=== PATIENT | male | born 2000 | race Caucasian/White ===

== ENCOUNTER 2019-02-17 16:47 | Emergency (ER) | payer BC, OTHER ==
[~2019-02-17] VITALS: Ht 177.8 cm; Wt 95.3 kg
[2019-02-17 17:13] LABS: BILIRUBIN,URINE NEGATIVE (NEGATIVE); CLARITY,URINE CLEAR; COLOR,URINE YELLOW; GLUCOSE, URINE (UA) NEGATIVE (NEGATIVE); KETONES,URINE NEGATIVE (NEGATIVE); LEUKOCYTE ESTERASE ,URINE NEGATIVE (NEGATIVE); NITRITE,URINE NEGATIVE (NEGATIVE); PH,URINE 5 (5-9); PROTEIN,URINE NEGATIVE (NEGATIVE); UROBILINOGEN,URINE NORMAL (NORMAL)
[2019-02-17 17:19] LABS: BACTERIA,URINE NEGATIVE /HPF
[2019-02-17 17:27] LABS: AMPHETAMINE SCREEN, URINE POSITIVE (NEGATIVE); BARBITURATE SCREEN URINE NEGATIVE (NEGATIVE); BENZODIAZEPINES SCREEN URINE NEGATIVE (NEGATIVE); CANNABINOID SCREEN, URINE POSITIVE (NEGATIVE); COCAINE SCREEN URINE NEGATIVE (NEGATIVE); METHADONE STAT NEGATIVE (NEGATIVE); METHAMPHETAMINE SCREEN URINE S NEGATIVE (NEGATIVE); OPIATE SCREEN URINE NEGATIVE (NEGATIVE); OXYCODONE STAT NEGATIVE (NEGATIVE); PROPOXYPHENE STAT NEGATIVE (NEGATIVE); TRICYCLIC ANTIDEPRESSANTS SCRE NEGATIVE (NEGATIVE)
[2019-02-17] MEDS ORDERED: hydrOXYzine (VISTARIL) 25 MG capsule/tablet PO ONE (17:45)
--- NOTE | 2019-02-17 17:45 | ED Psychosocial ---
General Chief Complaint: Psych/Social Disorder Stated Complaint: PSYCH EVAL Nursing Triage Note: PT AMB TO [facility] 6 WITH REQUEST FOR PSYCH EVAL. PT STATES HE ATTEMPTED SUICIDE ON TUESDAY BY TAKING 8 HYDROCODONES. STATE SHE HAD BEEN DRINKING PRIOR TO TAKING PILLS. STATES ROOMMATE MADE HIM DRINK A BUNCH OF WATER UNTIL HE THREW THE PILLS UP. PT STATES THE [employer] IS REQUESTING HE HAVE A PSYCH EVAL. History of Present Illness Date Seen by Provider: Feb 17, 2019 Time Seen by Provider: 17:25 Initial Comments 18-year-old male presented for psychiatric evaluation. 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 He told a superior officer about events that happened earlier this week and they felt he required psychiatric eval. He reports on for 02/14/2019 he took 8 hydrocodone, he had from a previous surgery and made suicidal comments to friends. He denies planning to attempt suicide, he just became acutely stressed because his friends thought he was lying to them. At present time the patient denies suicidal or homicidal thoughts and he has no suicide plan, he does report anxiety related to his commitments and possible deployment this fall to [facility] for 9-10 months. He is second guessing his career but concerned about the financial debt, failing his parents plans for him, and difficulty continuing in college. 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 He also reports that it was the best option for his college tuition. He is concerned about mental health treatment and being able to stay in the . He reports significant anxiety that has been escalating over the last few weeks to month. He has never been on treatment for anxiety or any other behavioral health issues. No family history of mental health disorders. He has good communication with his parents and 5 siblings. Patient states that he feels stressed all the time, related to [employer], and anxious but not suicidal. Timing/Duration: getting worse Severity: moderate Associated Symptoms: anxiety, insomnia (with drill this ) Allergies and Home Medications Allergies Coded Allergies: No Known Drug Allergies (Unverified , 02/17/19) Home Medications Hydroxyzine Pamoate 50 Mg Capsule, 50 MG PO Q8H PRN for ANXIETY Prescribed by: DERRICK LIMON on 02/17/19 0394 Patient Home Medication List Home Medication List Reviewed: Yes Review of Systems Constitutional: no symptoms reported, see HPI Psychiatric/Neurological: See HPI, Anxiety All Other Systems Reviewed Negative Unless Noted: Yes Past Qifhbdj-Xvekmk-Ptyqmj Hx Past Med/Social Hx: Reviewed Nursing Past Med/Soc Hx Patient Social History Alcohol Use: Regular Use Alcohol Beverage of Choice: Beer (8-9: 3 times a week) Recreational Drug Use: Yes (denies using since enlisting but does report he smoked pot on 02/14/19) Drug of Choice: marijuana Smoking Status: Current Someday Smoker Recent Foreign Travel: No Contact w/Someone Who Travel: No Recent Infectious Disease Expo: No Immunizations Up To Date Tetanus Booster (TDap): Unknown PED Vaccines UTD: Yes Family Medical History Reviewed Nursing Family Hx No Pertinent Family Hx Physical Exam Vital Signs - First Documented 02/17/19 16:50 Pulse 112 Resp 16 B/P (MAP) 133/86 (102) Pulse Ox 98 O2 Delivery Room Air Capillary Refill : Less Than 3 Seconds Height, Weight, BMI Height: 5'10.00" Weight: 210lbs. oz. 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 technician II-XII nml as tested, no motor/sensory deficits, alert, normal mood/affect, oriented x 3 Appearance/Memory: appropriate appearance, appropriate insight, neat, no memory impairment, denies illness Behavior/Eye Contact: cooperative, good eye contact, normal speech Thoughts/Hallucinations: normal thought pattern, no apparent hallucination, auditory hallucinations Skin: normal color, warm/dry Lymphatic: no adenopathy Progress/Results/Core Measures Results/Orders Lab Results Laboratory Tests Test 02/17/19 17:03 02/17/19 17:40 Range/Units Urine Color YELLOW Urine Clarity CLEAR Urine pH 5 5-9 Urine Specific [place] 1.025 H 1.016-1.022 Urine Protein NEGATIVE NEGATIVE Urine Glucose (UA) NEGATIVE NEGATIVE Urine Ketones NEGATIVE NEGATIVE Urine Nitrite NEGATIVE NEGATIVE Urine Bilirubin NEGATIVE NEGATIVE Urine Urobilinogen NORMAL NORMAL MG/DL Urine Leukocyte Esterase NEGATIVE NEGATIVE Urine RBC (Auto) NEGATIVE NEGATIVE Urine RBC NONE /HPF Urine WBC NONE /HPF Urine Squamous Epithelial Cells NONE /HPF Urine Crystals NONE /LPF Urine Bacteria NEGATIVE /HPF Urine Casts NONE /LPF Urine Mucus NEGATIVE /LPF Urine Culture Indicated NO Urine Opiates Screen NEGATIVE NEGATIVE Urine Oxycodone Screen NEGATIVE NEGATIVE Urine Methadone Screen NEGATIVE NEGATIVE Urine Propoxyphene Screen NEGATIVE NEGATIVE Urine Barbiturates Screen NEGATIVE NEGATIVE Ur Tricyclic Antidepressants Screen NEGATIVE NEGATIVE Urine Phencyclidine Screen NEGATIVE NEGATIVE Urine Amphetamines Screen POSITIVE H NEGATIVE Urine Methamphetamines Screen NEGATIVE NEGATIVE Urine Benzodiazepines Screen NEGATIVE NEGATIVE Urine Cocaine Screen NEGATIVE NEGATIVE Urine Cannabinoids Screen POSITIVE H NEGATIVE White Blood Count 10.3 4.3-11.0 10^3/uL Red Blood Count 5.30 4.35-5.85 10^6/uL Hemoglobin 16.0 13.3-17.7 G/DL Hematocrit 47 40-54 % Mean Corpuscular Volume 88 80-99 FL Mean Corpuscular Hemoglobin 30 25-34 PG Mean Corpuscular Hemoglobin Concent 34 32-36 G/DL Red Cell Distribution Width 14.1 10.0-14.5 % Platelet Count 232 130-400 10^3/uL Mean Platelet Volume 10.6 H 7.4-10.4 FL Neutrophils (%) (Auto) 51 42-75 % Lymphocytes (%) (Auto) 39 12-44 % Monocytes (%) (Auto) 9 0-12 % Eosinophils (%) (Auto) 1 0-10 % Basophils (%) (Auto) 0 0-10 % Neutrophils # (Auto) 5.3 1.8-7.8 X 10^3 Lymphocytes # (Auto) 4.0 1.0-4.0 X 10^3 Monocytes # (Auto) 0.9 0.0-1.0 X 10^3 Eosinophils # (Auto) 0.1 0.0-0.3 10^3/uL Basophils # (Auto) 0.0 0.0-0.1 10^3/uL Sodium Level 138 135-145 MMOL/L Potassium Level 3.8 3.6-5.0 MMOL/L Chloride Level 102 98-107 MMOL/L Carbon Dioxide Level 23 21-32 MMOL/L Anion Gap 13 5-14 MMOL/L Blood Urea Nitrogen 9 7-18 MG/DL Creatinine 1.08 0.60-1.30 MG/DL Estimat Glomerular Filtration Rate > 60 BUN/Creatinine Ratio 8 Glucose Level 87 70-105 MG/DL Calcium Level 10.2 H 8.5-10.1 MG/DL Corrected Calcium 8.5-10.1 MG/DL Total Bilirubin 1.1 H 0.1-1.0 MG/DL Aspartate Amino Transf (AST/SGOT) 32 5-34 U/L Alanine Aminotransferase (ALT/SGPT) 27 0-55 U/L Alkaline Phosphatase 60 40-136 U/L Total Protein 7.8 6.4-8.2 GM/DL Albumin 5.0 H 3.2-4.5 GM/DL Amylase Level 52 25-125 U/L TSH [place] Testing 1.41 0.35-4.94 UIU/ML Salicylates Level < 5.0 L 5.0-20.0 MG/DL Acetaminophen Level < 10 L 10-30 UG/ML Serum Alcohol < 10 <10 MG/DL My Orders Orders - DERRICK LIMON Ua Culture If Indicated (02/17/19 17:08) Cbc With Automated Diff (02/17/19 17:08) Comprehensive Metabolic Panel (02/17/19 17:08) Alcohol (02/17/19 17:08) Drug Screen Stat (Urine) (02/17/19 17:08) Acetaminophen (02/17/19 17:08) Salicylate (02/17/19 17:08) Ed Iv/Invasive Line Start (02/17/19 17:08) Thyroid Analyzer (02/17/19 17:08) Amylase (02/17/19 17:08) Monitor-Rhythm Ecg Trace Only (02/17/19 17:08) Hydroxyzine Cap/Tab (Vistaril) (02/17/19 17:45) Ekg Tracing (02/17/19 17:43) Medications Given in ED Current Medications Medications Dose Ordered Sig/Tanmay Route Start Time Stop Time Status Last Admin Dose Admin Hydroxyzine Pamoate 50 mg ONCE ONCE PO 02/17/19 17:45 02/17/19 17:46 DC 02/17/19 17:45 50 MG Vital Signs/I&O 02/17/19 02/17/19 16:50 18:56 Pulse 112 101 Resp 16 22 B/P (MAP) 133/86 (102) 127/89 (102) Pulse Ox 98 98 O2 Delivery Room Air Room Air Blood Pressure Mean: 102 Progress Progress Note : Time: 17:25 Progress Note Patient seen and evaluated, discussed options for treatment and making long- term decisions about continuing in the . I stressed the importance of him getting long-term care for the anxiety before making any acute decisions. 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 He is open to trying Vistaril for the acute anxiety. He does not feel comfortable staying at drill this weekend. Spoke to Sgt Hand, who accompanied the patient. He can be released to the care of his parents for the remainder of the weekend, meet with his junior recruiter on Tuesday and discuss his options. 1830 HR 85-90, patient does still Vistaril has taken the edge off the anxiety. I have encouraged that he call [facility] on Tuesday for appt with medical and counseling. He can be treated mood disorder and remain in [employer]. He is in agreement with this plan. We talked to Sgt Hand, he can be released from [facility] for this weekend to the care of his family. He will be screened by [facility] behavioral health rn case manager hospice to insure a plan of care is in place for the patient. He is agreeable to this and will talk about his future with his family. Discharge planning and return precautions as well as a safety plan of his anxiety or suicidal thoughts per to return for in place. The patient did call his stepfather prior to discharge and the family is in agreement to obtain him from [facility]. Initial ECG Impression Date: Feb 17, 2019 Initial ECG Impression Time: 17:01 Initial ECG Rate: 113 Initial ECG Rhythm: S.Tach Initial ECG Intervals: Normal Initial ECG Intervals PA 136, QRSD 112, QT 316, QTC 434. Prather P 63, QRS 84, T 30. Initial ECG Impression: Normal Initial ECG Comparisson: No Previous ECG Available Comment Reviewed with Dr. Patel, agreed with interpretation. Departure Impression Primary Impression: Anxiety Disposition: 01 HOME, SELF-CARE Condition: Improved Departure-Patient Inst. Decision time for Depature: 18:35 Referrals: NO,LOCAL PHYSICIAN (PCP/Family) Primary Care Physician Patient Instructions: Anxiety, Adult (DC) Add. Discharge Instructions: Take prescribed medication as directed, do not take any other medication. Call [facility] on Tuesday [phone] for appt. Schedule an appointment to see your junior recruiter on Tuesday to discuss options. If feelings to harm self or others, call [phone] or [phone]. Stay with [employer] or your parents through the weekend. Return to emergency department if feelings to harm self or others, increased anxiety, new problems or concerns. All discharge instructions reviewed with patient and/or family. Voiced understanding. Scripts Hydroxyzine Pamoate (Vistaril) 50 Mg Capsule 50 MG PO Q8H PRN for ANXIETY, #15 CAP 0 Refills Prov: DERRICK LIMON 02/17/19 Copy Copies To 1: AIMEE BRENNER MD, AMY ARNP Feb 17, 2019 17:45
[2019-02-17 17:47] LABS: BASOPHILS % (AUTO) 0 % (0-10); EOSINOPHILS # (AUTO) 0.1 10^3/uL (0.0-0.3); EOSINOPHILS % (AUTO) 1 % (0-10); HEMATOCRIT 47 % (40-54); LYMPHOCYTES % (AUTO) 39 % (12-44); MEAN CORPUSCULAR HEMOGLOBIN 30 PG (25-34); MEAN CORPUSCULAR HGB CONC 34 G/DL (32-36); MEAN CORPUSCULAR VOLUME 88 FL (80-99); MEAN PLATELET VOLUME 10.6 FL (7.4-10.4); MONOCYTES # (AUTO) 0.9 X 10^3 (0.0-1.0); MONOCYTES % (AUTO) 9 % (0-12); NEUTROPHILS # (AUTO) 5.3 X 10^3 (1.8-7.8); NEUTROPHILS % (AUTO) 51 % (42-75); PLATELET COUNT 232 10^3/uL (130-400); RED CELL DISTRIBUTION WIDTH 14.1 % (10.0-14.5); WHITE BLOOD COUNT 10.3 10^3/uL (4.3-11.0)
[2019-02-17 18:06] LABS: ALANINE AMINOTRANSFERASE 27 U/L (0-55); ALKALINE PHOSPHATASE 60 U/L (40-136); AMYLASE 52 U/L (25-125); BILIRUBIN,TOTAL 1.1 MG/DL (0.1-1.0); BUN/CREATININE RATIO 8; CALCIUM 10.2 MG/DL (8.5-10.1); CARBON DIOXIDE 23 MMOL/L (21-32); CHLORIDE 102 MMOL/L (98-107); CREATININE SERUM 1.08 MG/DL (0.60-1.30); GFR ESTIMATED > 60; GLUCOSE 87 MG/DL (70-105); POTASSIUM 3.8 MMOL/L (3.6-5.0); SALICYLATE < 5.0 MG/DL (5.0-20.0); SODIUM 138 MMOL/L (135-145); TOTAL PROTEIN 7.8 GM/DL (6.4-8.2)
[2019-02-17 18:08] LABS: ACETAMINOPHEN < 10 UG/ML (10-30)
[2019-02-17] MEDS ORDERED: HYDR50CA PO (18:39)
[2019-02-17 18:56] VITALS: BP 127/89
== END 2019-02-17 18:56 | disposition home or self-care (01) ==
LOC: ER 16:49
DX: F41.9 Anxiety disorder, unspecified (principal); G47.30 Sleep apnea, unspecified; F12.10 Cannabis abuse, uncomplicated; F17.200 Nicotine dependence, unspecified, uncomplicated
CPT/HCPCS: 36415; 80053; 80306; 80320; 80329; 81000; 82150; 84443; 85025; 93005; 93041

== ENCOUNTER 2021-11-17 00:43 | Emergency (ER) | payer BC, OTHER ==
[~2021-11-17] VITALS: Ht 175 cm; Wt 84.0 kg
[~2021-11-17 00:43] MED LIST: HYDR50CA PO
[2021-11-17 01:20] LABS: BASOPHILS % (AUTO) 0 % (0-10); EOSINOPHILS # (AUTO) 0.1 10^3/uL (0.0-0.3); EOSINOPHILS % (AUTO) 1 % (0-10); HEMATOCRIT 41 % (40-54); HEMOGLOBIN 14.2 g/dL (13.3-17.7); LYMPHOCYTES # (AUTO) 3.1 10^3/uL (1.0-4.0); LYMPHOCYTES % (AUTO) 42 % (12-44); MEAN CORPUSCULAR HEMOGLOBIN 30 pg (25-34); MEAN CORPUSCULAR HGB CONC 34 g/dL (32-36); MEAN CORPUSCULAR VOLUME 88 fL (80-99); MEAN PLATELET VOLUME 9.7 fL (9.0-12.2); MONOCYTES # (AUTO) 0.7 10^3/uL (0.0-1.0); MONOCYTES % (AUTO) 9 % (0-12); NEUTROPHILS # (AUTO) 3.4 10^3/uL (1.8-7.8); NEUTROPHILS % (AUTO) 47 % (42-75); PLATELET COUNT 225 10^3/uL (130-400); WHITE BLOOD COUNT 7.3 10^3/uL (4.3-11.0)
--- NOTE | 2021-11-17 01:22 | ED Psychosocial ---
General Chief Complaint: Psych/Social Disorder Stated Complaint: PANIC ATTACK Source: patient History of Present Illness Date Seen by Provider: Nov 17, 2021 Time Seen by Provider: 01:03 Initial Comments PT ARRIVES VIA POV FROM HOME STATES HE THINKS HE IS HAVING A PANIC ATTACK STATES HE HAS HAS SELF-DIAGNOSED HIMSELF WITH "COVID ANXIETY" STATES HE HAD COVID-19 IN SEPTEMBER OF 2020--MILD ILLNESS, NO HOSPITALIZATION OR TREATMENT. STATES SINCE THEN HE IS "VERY AWARE OF HIS HEART BEAT" AND STATES "IT GOES UP EVERY TIME IF I HAVE CAFFEINE OR EXERCISE" STATES TONIGHT AROUND MIDNIGHT, HE WAS WATCHING TV AND "BECAME VERY CONSCIOUS OF MY HEART BEAT AND IT KEPT GETTING FASTER AND I TRIED TO LAY DOWN AND THEN I GOT NERVOUS ABOUT IT AND I DIDN'T KNOW WHAT WAS HAPPENING SO I MADE MY GIRLFRIEND BRING ME HERE" STATES HIS CHEST FELT A LITTLE BIT TIGHT, AND FELT SLIGHTLY SHORT OF BREATH--BUT FEELS THESE WERE ASSOCIATED WITH FEELING ANXIOUS. NO SUICIDAL THOUGHTS HAS HAD SIMILAR EPISODES IN THE PAST PT USED TO BE ON ZOLOFT FOR ANXIETY AND DEXTROAMPHETAMINE SALTS FOR ADHD--STATES HE HAS NOT TAKEN EITHER OF THEM FOR OVER 6 MONTHS BECAUSE HE LOST HIS INSURANCE. HAS NEVER SEEN ANYONE FOR MENTAL HEALTH--HIS PCP AT [facility], DR. PEÑA, PRESCRIBED HIS MEDICATIONS. DENIES FEVER OR RECENT ILLNESS LIVES WITH HIS GIRLFRIEND, AND SEVERAL OF HER CO-WORKERS CURRENTLY HAVE COVID-19 PT HAD HOANG AND HOANG VACCINE 02/2021. HAS NOT HAD A BOOSTER VACCINE. PCP:DR. PEÑA, [facility] Allergies and Home Medications Allergies Coded Allergies: No Known Drug Allergies (Unverified , 02/17/19) Patient Home Medication List Home Medication List Reviewed: Yes Hydroxyzine Pamoate (Vistaril) 50 Mg Capsule, 50 MG PO Q8H PRN for ANXIETY Prescribed by: DERRICK LIMON on 02/17/19 2459 Hydroxyzine Pamoate (Hydroxyzine Pamoate) 50 Mg Capsule, 50 MG PO Q6H PRN for ANXIETY Prescribed by: LOI ZARATE on 11/17/21 [id number] Review of Systems Constitutional: no symptoms reported EENTM: no symptoms reported Respiratory: see HPI Cardiovascular: see HPI Gastrointestinal: no symptoms reported Genitourinary: no symptoms reported Musculoskeletal: no symptoms reported Skin: no symptoms reported Psychiatric/Neurological: See HPI, Anxiety Past Mqzckxj-Qivkxl-Evvjoe Hx Patient Social History Tobacco Use?: No Use of E-Cig and/or Vaping dev: Yes E-Cig or Vaping type used: Nicotine Use of E-Cig and/or Vaping Michael: Current Everyday User Substance use?: Yes Substance type: Marijuana Substance frequency: Couple times a week Alcohol Use?: Yes Alcohol type: Beer Alcohol Frequency: Several times a month Pt feels they are or have been: No Immunizations Up To Date Tetanus Booster (TDap): Unknown PED Vaccines UTD: Yes Influenza Vaccine Up-to-Date: No; Not Current First/Initial COVID19 Vaccinat: FEBRUARY 2021 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 oz. 95.009052rr; BMI Method:Stated General Appearance: WD/WN, no apparent distress Neck: normal inspection Respiratory: normal breath sounds, no respiratory distress, no accessory muscle use Cardiovascular: regular rate, rhythm, no murmur Gastrointestinal: soft Extremities: normal inspection, no pedal edema, no calf tenderness, normal capillary refill Neurologic/Psychiatric: complex care nurse practitioner II-XII nml as tested, no motor/sensory deficits, alert, oriented x 3, other (MILDLY ANXIOUS) Appearance/Memory: appropriate insight, no memory impairment Behavior/Eye Contact: cooperative, good eye contact, normal speech Thoughts/Hallucinations: normal thought pattern, no apparent hallucination Skin: normal color, warm/dry Progress/Results/Core Measures Results/Orders Lab Results Laboratory Tests Test 11/17/21 01:15 11/17/21 02:00 Range/Units White Blood Count 7.3 4.3-11.0 10^3/uL Red Blood Count 4.71 4.30-5.52 10^6/uL Hemoglobin 14.2 13.3-17.7 g/dL Hematocrit 41 40-54 % Mean Corpuscular Volume 88 80-99 fL Mean Corpuscular Hemoglobin 30 25-34 pg Mean Corpuscular Hemoglobin Concent 34 32-36 g/dL Red Cell Distribution Width 11.6 10.0-14.5 % Platelet Count 225 130-400 10^3/uL Mean Platelet Volume 9.7 9.0-12.2 fL Immature Granulocyte % (Auto) 0 % Neutrophils (%) (Auto) 47 42-75 % Lymphocytes (%) (Auto) 42 12-44 % Monocytes (%) (Auto) 9 0-12 % Eosinophils (%) (Auto) 1 0-10 % Basophils (%) (Auto) 0 0-10 % Neutrophils # (Auto) 3.4 1.8-7.8 10^3/uL Lymphocytes # (Auto) 3.1 1.0-4.0 10^3/uL Monocytes # (Auto) 0.7 0.0-1.0 10^3/uL Eosinophils # (Auto) 0.1 0.0-0.3 10^3/uL Basophils # (Auto) 0.0 0.0-0.1 10^3/uL Immature Granulocyte # (Auto) 0.0 0.0-0.1 10^3/uL Sodium Level 139 135-145 MMOL/L Potassium Level 3.8 3.6-5.0 MMOL/L Chloride Level 103 98-107 MMOL/L Carbon Dioxide Level 22 21-32 MMOL/L Anion Gap 14 5-14 MMOL/L Blood Urea Nitrogen 15 7-18 MG/DL Creatinine 0.91 0.60-1.30 MG/DL Estimat Glomerular Filtration Rate 121 BUN/Creatinine Ratio 16 Glucose Level 169 H 70-105 MG/DL Calcium Level 9.4 8.5-10.1 MG/DL Corrected Calcium 8.5-10.1 MG/DL Magnesium Level 2.0 1.6-2.4 MG/DL Total Bilirubin 1.0 0.1-1.0 MG/DL Aspartate Amino Transf (AST/SGOT) 22 5-34 U/L Alanine Aminotransferase (ALT/SGPT) 23 0-55 U/L Alkaline Phosphatase 60 40-136 U/L Troponin I < 0.028 <0.028 NG/ML Total Protein 7.2 6.4-8.2 GM/DL Albumin 4.6 H 3.2-4.5 GM/DL TSH [place] Testing 0.63 0.35-4.94 UIU/ML Serum Alcohol < 10 <10 MG/DL Influenza Type A (RT-PCR) Not Detected Not Detecte Influenza Type B (RT-PCR) Not Detected Not Detecte SARS-CoV-2 RNA (RT-PCR) Not Detected Not Detecte Urine Color YELLOW Urine Clarity CLEAR Urine pH 6.5 5-9 Urine Specific [place] 1.010 L 1.016-1.022 Urine Protein NEGATIVE NEGATIVE Urine Glucose (UA) NEGATIVE NEGATIVE Urine Ketones NEGATIVE NEGATIVE Urine Nitrite NEGATIVE NEGATIVE Urine Bilirubin NEGATIVE NEGATIVE Urine Urobilinogen 0.2 < = 1.0 MG/DL Urine Leukocyte Esterase NEGATIVE NEGATIVE Urine RBC (Auto) NEGATIVE NEGATIVE Urine RBC NONE /HPF Urine WBC NONE /HPF Urine Squamous Epithelial Cells RARE /HPF Urine Crystals NONE /LPF Urine Bacteria NEGATIVE /HPF Urine Casts NONE /LPF Urine Mucus NEGATIVE /LPF Urine Culture Indicated NO Urine Opiates Screen NEGATIVE NEGATIVE Urine Oxycodone Screen NEGATIVE NEGATIVE Urine Methadone Screen NEGATIVE NEGATIVE Urine Propoxyphene Screen NEGATIVE NEGATIVE Urine Barbiturates Screen NEGATIVE NEGATIVE Ur Tricyclic Antidepressants Screen NEGATIVE NEGATIVE Urine Phencyclidine Screen NEGATIVE NEGATIVE Urine Amphetamines Screen NEGATIVE NEGATIVE Urine Methamphetamines Screen NEGATIVE NEGATIVE Urine Benzodiazepines Screen NEGATIVE NEGATIVE Urine Cocaine Screen NEGATIVE NEGATIVE Urine Cannabinoids Screen POSITIVE H NEGATIVE My Orders Orders - LOI ZARATE DO Ed Iv/Invasive Line Start (11/17/21 01:06) Ekg Tracing (11/17/21 01:06) Monitor-Rhythm Ecg Trace Only (11/17/21 01:06) Alcohol (11/17/21 01:06) Cbc With Automated Diff (11/17/21 01:06) Comprehensive Metabolic Panel (11/17/21 01:06) Drug Screen Stat (Urine) (11/17/21 01:06) Magnesium (11/17/21 01:06) Thyroid Analyzer (11/17/21 01:06) Ua Culture If Indicated (11/17/21 01:06) Troponin I [place] (11/17/21 01:06) Chest 1 View, Ap/Pa Only (11/17/21 01:06) Covid 19 Inhouse Test (11/17/21 01:06) Influenza A And B By Pcr (11/17/21 01:06) Isolation Central Supply Req (11/17/21 01:06) Hydroxyzine Cap/Tab (Vistaril) (11/17/21 02:00) Medications Given in ED Current Medications Medications Dose Ordered Sig/Tanmay Route Start Time Stop Time Status Last Admin Dose Admin Hydroxyzine Pamoate 50 mg ONCE ONCE PO 11/17/21 02:00 11/17/21 02:02 DC 11/17/21 02:18 50 MG Vital Signs/I&O 11/17/21 01:00 Temp 36.9 Pulse 108 Resp 22 B/P (MAP) 134/84 (101) Pulse Ox 99 O2 Delivery Room Air Progress Progress Note : Progress Note PPE WORN COVID AND FLU TESTING DONE PT CALMED SHORTLY AFTER ARRIVAL HR DOWN TO 80'S, BP 120'S/70'S. O2 SATS 98% ON ROOM AIR. PT FEELS COMFORTABLE GOING HOME Initial ECG Impression Date: Nov 17, 2021 Initial ECG Impression Time: 01:08 Initial ECG Rate: 111 Initial ECG Rhythm: S.Tach Departure Impression Primary Impression: Anxiety Disposition: 01 HOME, SELF-CARE Condition: Improved Departure-Patient Inst. Referrals: DIVYA PEÑA DO [facility] Patient Instructions: Anxiety, Adult (DC), Tips to Help You [place] in Uncertain Times, Tips to Help You Worry Less Add. Discharge Instructions: FOLLOW UP WITH [facility] THIS WEEK FOR FURTHER CARE All discharge instructions reviewed with patient and/or family. Voiced understanding. Scripts Hydroxyzine Pamoate (Hydroxyzine Pamoate) 50 Mg Capsule 50 MG PO Q6H PRN for ANXIETY, #15 CAP Prov: LOI ZARATE DO 11/17/21 LOI ZARATE DO Nov 17, 2021 01:22
[2021-11-17 01:28] LABS: ALBUMIN 4.6 GM/DL (3.2-4.5); CHLORIDE 103 MMOL/L (98-107); POTASSIUM 3.8 MMOL/L (3.6-5.0); SODIUM 139 MMOL/L (135-145)
[2021-11-17 01:29] LABS: CALCIUM 9.4 MG/DL (8.5-10.1)
[2021-11-17 01:30] LABS: GLUCOSE 169 MG/DL (70-105)
[2021-11-17 01:31] LABS: TOTAL PROTEIN 7.2 GM/DL (6.4-8.2)
[2021-11-17 01:32] LABS: CARBON DIOXIDE 22 MMOL/L (21-32)
[2021-11-17 01:34] LABS: ALKALINE PHOSPHATASE 60 U/L (40-136); CREATININE SERUM 0.91 MG/DL (0.60-1.30); GFR ESTIMATED 121
[2021-11-17 01:35] LABS: BUN/CREATININE RATIO 16
[2021-11-17 01:37] LABS: ALANINE AMINOTRANSFERASE 23 U/L (0-55)
[2021-11-17 01:57] LABS: TSH (THYROID ANALYZER) 0.63 UIU/ML (0.35-4.94)
[2021-11-17] MEDS ORDERED: hydrOXYzine (VISTARIL/ATARAX) 25 MG capsule/tablet PO ONE (02:00)
[2021-11-17 02:11] LABS: BILIRUBIN,URINE NEGATIVE (NEGATIVE); CLARITY,URINE CLEAR; COLOR,URINE YELLOW; GLUCOSE, URINE (UA) NEGATIVE (NEGATIVE); KETONES,URINE NEGATIVE (NEGATIVE); LEUKOCYTE ESTERASE ,URINE NEGATIVE (NEGATIVE); NITRITE,URINE NEGATIVE (NEGATIVE); PH,URINE 6.5 (5-9); PROTEIN,URINE NEGATIVE (NEGATIVE)
[2021-11-17 02:18] LABS: BACTERIA,URINE NEGATIVE /HPF; SQUAMOUS EPITHELIAL CELL,UR RARE /HPF
[2021-11-17 02:22] LABS: AMPHETAMINE SCREEN, URINE NEGATIVE (NEGATIVE); BARBITURATE SCREEN URINE NEGATIVE (NEGATIVE); BENZODIAZEPINES SCREEN URINE NEGATIVE (NEGATIVE); CANNABINOID SCREEN, URINE POSITIVE (NEGATIVE); COCAINE SCREEN URINE NEGATIVE (NEGATIVE); METHADONE STAT NEGATIVE (NEGATIVE); METHAMPHETAMINE SCREEN URINE S NEGATIVE (NEGATIVE); OPIATE SCREEN URINE NEGATIVE (NEGATIVE); OXYCODONE STAT NEGATIVE (NEGATIVE); PROPOXYPHENE STAT NEGATIVE (NEGATIVE); TRICYCLIC ANTIDEPRESSANTS SCRE NEGATIVE (NEGATIVE)
[2021-11-17] MEDS ORDERED: HYDR50CA3 PO (02:29)
[2021-11-17 02:37] VITALS: BP 110/78
--- NOTE | 2021-11-17 07:16 | Diagnostic Imaging Report ---
INDICATION: DYSPNEA. TECHNIQUE: Single view chest 2:14 AM. CORRELATION STUDY: None FINDINGS: The heart size, mediastinal configuration and pulmonary vascularity are within normal limits. The lungs are clear with no consolidating infiltrate. There is no significant effusion or pneumothorax. IMPRESSION: 1. Negative appearing portable chest. Dictated by: Dictated on workstation # [id number]
== END 2021-11-17 02:38 | disposition home or self-care (01) ==
LOC: EDUNIT# 00:43 → ER 00:47
DX: F41.9 Anxiety disorder, unspecified (principal); F17.290 Nicotine dependence, other tobacco product, uncomplicated; F90.9 Attention-deficit hyperactivity disorder, unspecified type; Z20.822 Contact with and (suspected) exposure to COVID-19
CPT/HCPCS: 71045; 80053; 80306; 81000; 83735; 84443; 84484; 85025; 87636; 93005; 93041; G0480; 36415; 80320